=== PATIENT | male | born 1980 | race Caucasian/White ===

== ENCOUNTER 2017-02-03 06:31 | Inpatient (IN) | payer MEDICAID, OTHER ==
[~2017-02-03] VITALS: Ht 188 cm; Wt 86.1 kg
[2017-02-03 07:34] LABS: EOSINOPHILS % (AUTO) 0.02 % (1.0-6.0); HEMATOCRIT 47.1 % (41-53); HEMOGLOBIN 16.2 g/dL (13.5-17.5); LYMPHOCYTES # (AUTO) 0.8 K/uL (1.0-4.8); LYMPHOCYTES % (AUTO) 6.9 % (22.0-44.0); MEAN CORPUSCULAR HEMOGLOBIN 31.2 pg (26.0-34.0); MEAN CORPUSCULAR HGB CONC 34.3 G/dL (31.0-37.0); MEAN CORPUSCULAR VOLUME 91 fL (80-100); MONOCYTES # (AUTO) 0.7 K/uL (0.1-1.0); MONOCYTES % (AUTO) 5.8 % (2.0-9.0); NEUTROPHILS # (AUTO) 10.4 K/uL (1.8-7.7); PLATELET COUNT (AUTO) 264 K/uL (150-450); RED BLOOD CELL COUNT(AUTO) 5.19 MIL/uL (4.50-5.90); RED CELL DISTRIBUTION WIDTH 12.7 % (11.5-14.5)
[2017-02-03 07:35] LABS: NEUTROPHILS % (AUTO) 87.2 % (40.0-70.0)
[2017-02-03 07:40] LABS: ANION GAP 17 mmol/L (8-16); CALCIUM, TOTAL 9.3 mg/dL (8.8-10.5); CARBON DIOXIDE 21 mmol/L (22-29); CHLORIDE 100 mmol/L (98-107); CREATININE 0.88 mg/dL (0.60-1.30); GLOMERULAR FILTR. RATE CALC > 60 mL/min (>60); GLUCOSE,RANDOM 116 mg/dL (70-110); POTASSIUM 3.5 mmol/L (3.5-5.1); SODIUM SERUM 138 mmol/L (136-145); UREA NITROGEN, BLOOD 15 mg/dL (7-18)
[2017-02-03 07:43] LABS: ALANINE AMINOTRANSFERASE 51 U/L (12-78); ALBUMIN 4.8 g/dL (3.4-5.0); ALKALINE PHOSPHATASE 74 U/L (46-116); ASPARTATE AMINOTRANSFERASE 82 U/L (15-37); BILIRUBIN,TOTAL 0.7 mg/dL (0.1-1.0); TOTAL PROTEIN, SERUM 8.2 g/dL (6.4-8.2)
[2017-02-03] MEDS ORDERED: DiphenhydrAMINE HCL 50 MG/ML VIAL IM ONE ×2 (09:45→18:45)
[2017-02-03] MEDS ORDERED: HALOPERIDOL LACTATE 5 MG/ML VIAL IM ONE (09:45)
[2017-02-03] MEDS ORDERED: LORazepam 2 MG/ML VIAL IM ONE ×2 (09:45→18:45)
[2017-02-03] MEDS ORDERED: ZOLPIDEM TARTRATE 10 MG TABLET PO PRN (10:15)
[2017-02-03] MEDS ORDERED: HALOPERIDOL 5 MG TABLET PO PRN (10:15)
[2017-02-03 12:48] VITALS: BP 159/86
[2017-02-03] MEDS: LORazepam 2 MG TABLET PO PRN (18:17)
[2017-02-03 18:44] VITALS: BP 126/74
[2017-02-03] MEDS ORDERED: ACETAMINOPHEN 325 MG TABLET PO PRN (20:30)
[2017-02-03] MEDS ORDERED: SUMAtriptan SUCCINATE 25 MG TABLET PO PRN (20:30)
[2017-02-03] MEDS ORDERED: IBUPROFEN 400 MG TABLET PO PRN (20:30)
[2017-02-04 06:00] VITALS: BP 112/62
[2017-02-04 07:20] VITALS: BP 153/88
[2017-02-04 10:36] VITALS: BP 153/88
[2017-02-04] MEDS: LORazepam 2 MG TABLET PO PRN ×2 (15:08→20:42)
[2017-02-04 18:09] VITALS: BP 136/75
[2017-02-04] MEDS: OLANZapine 5 MG TABLET PO SCH (20:42)
[2017-02-05] MEDS: LORazepam 2 MG TABLET PO PRN ×2 (05:32→11:13)
[2017-02-05 05:35] VITALS: BP 151/102
[2017-02-05 08:57] VITALS: BP 122/82
[2017-02-05 16:00] VITALS: BP 122/71
[2017-02-05] MEDS: OLANZapine 5 MG TABLET PO SCH (20:33)
[2017-02-06] MEDS ORDERED: OLAN5TAB27 PO (07:54)
[2017-02-06 08:25] VITALS: BP 140/89
[2017-02-06 08:36] LABS: HEMOGLOBIN A1C 5.5 % (4.5-6.2)
[2017-02-06 08:50] LABS: CHOL/HDL RATIO 4.9 (4.2-7.3); THYROID STIMULATING HORMONE 1.16 uIU/mL (0.36-3.74)
== END 2017-02-06 10:50 | disposition home or self-care (01) | DRG 750 ==
LOC: EMS 06:33 → 3EI 12:10 → 3EC 20:13
PROVIDERS: ADMIT Psychiatry & Neurology Child & Adolescent Psychiatry; ATTEND Psychiatry & Neurology Child & Adolescent Psychiatry
DX: F20.0 Paranoid schizophrenia (principal); R74.0 Nonspecific elevation of levels of transaminase and lactic acid dehydrogenase [LDH]; F41.9 Anxiety disorder, unspecified; G89.29 Other chronic pain; G43.909 Migraine, unspecified, not intractable, without status migrainosus; M79.7 Fibromyalgia; Z91.5 Personal history of self-harm; Z91.041 Radiographic dye allergy status; Z81.8 Family history of other mental and behavioral disorders
CPT/HCPCS: 83036; 84443; 99285; G0480; J1200; J1630; J2060; J3230

== ENCOUNTER 2019-11-17 11:51 | Inpatient (IN) | payer MEDICAID, OTHER ==
[~2019-11-17] VITALS: Ht 185.4 cm; Wt 98.3 kg
[~2019-11-17 11:51] MED LIST: OLAN5TAB27 PO
[2019-11-17] MEDS ORDERED: ZOLPIDEM TARTRATE 10 MG TABLET PO PRN (13:00)
[2019-11-17] MEDS: LORazepam 2 MG TABLET PO PRN (15:29)
[2019-11-17] MEDS: HALOPERIDOL 5 MG TABLET PO PRN (15:29)
[2019-11-17 16:21] LABS: COVID AG,FIA SOURCE NASAL SWAB
[2019-11-17 17:36] VITALS: BP 152/97
[2019-11-18] MEDS: LORazepam 2 MG TABLET PO PRN ×3 (00:03→20:41)
[2019-11-18 00:14] VITALS: BP 144/85
[2019-11-18] MEDS: HALOPERIDOL 5 MG TABLET PO PRN ×2 (09:33→20:41)
[2019-11-18 10:10] VITALS: BP 149/81
[2019-11-18 16:06] VITALS: BP 126/81
[2019-11-18] MEDS: RisperiDONE 3 MG TABLET PO SCH (21:30)
[2019-11-19 08:00] VITALS: BP 136/85
[2019-11-19] MEDS ORDERED: PETROLATUM,WHITE 28 GM JELLY TP PRN (08:30)
[2019-11-19] MEDS ORDERED: BENZOCAINE/MENTHOL LOZENGE PO PRN (08:30)
[2019-11-19] MEDS ORDERED: ALBUTEROL SULFATE HFA 90 MCG/PUFF 8 GM INHALER IH PRN (08:30)
[2019-11-19] MEDS ORDERED: CloNIDine HCL 0.1 MG TABLET PO PRN (08:30)
[2019-11-19] MEDS ORDERED: ACETAMINOPHEN 325 MG TABLET PO PRN (08:30)
[2019-11-19] MEDS ORDERED: IBUPROFEN 600 MG TABLET PO PRN (08:30)
[2019-11-19] MEDS ORDERED: MAGNESIUM HYDROXIDE SUSPENSION 30 ML UDCUP PO PRN (08:30)
[2019-11-19] MEDS ORDERED: BACITRACIN 28 GM OINTMENT TP PRN (08:30)
[2019-11-19] MEDS ORDERED: OMEPRAZOLE 20 MG CAPSULE PO PRN (08:30)
[2019-11-19] MEDS ORDERED: ONDANSETRON HCL 4 MG TABLET PO PRN (08:30)
[2019-11-19] MEDS ORDERED: MAG HYDROX/AL HYDROX/SIMETH ES 30 ML SUSPENSION UDCUP PO PRN (08:30)
[2019-11-19] MEDS ORDERED: DOCUSATE SODIUM 100 MG CAPSULE PO PRN (08:30)
[2019-11-19] MEDS ORDERED: LOPERAMIDE HCL 2 MG CAPSULE PO PRN (08:30)
[2019-11-19] MEDS: RisperiDONE 3 MG TABLET PO SCH ×3 (09:00→16:51)
[2019-11-19] MEDS: LORazepam 2 MG TABLET PO PRN ×2 (09:44→19:23)
[2019-11-19] MEDS: HALOPERIDOL 5 MG TABLET PO PRN (09:44)
[2019-11-19 16:00] VITALS: BP 124/84
[2019-11-20 07:01] LABS: BASOPHILS % (AUTO) 0.4 % (0.0-2.0); EOSINOPHILS % (AUTO) 3.6 % (1.0-6.0); HEMATOCRIT 41.8 % (41-53); HEMOGLOBIN 14.6 g/dL (13.5-17.5); LYMPHOCYTES # (AUTO) 2.6 K/uL (1.0-4.8); LYMPHOCYTES % (AUTO) 38.9 % (22.0-44.0); MEAN CORPUSCULAR HGB CONC 34.8 G/dL (31.0-37.0); MEAN CORPUSCULAR VOLUME 89 fL (80-100); MONOCYTES # (AUTO) 0.5 K/uL (0.1-1.0); MONOCYTES % (AUTO) 7.6 % (2.0-9.0); NEUTROPHILS # (AUTO) 3.4 K/uL (1.8-7.7); NEUTROPHILS % (AUTO) 49.5 % (40.0-70.0); PLATELET COUNT (AUTO) 225 K/uL (150-450); RED CELL DISTRIBUTION WIDTH 12.9 % (11.5-14.5)
[2019-11-20 07:46] LABS: HEMOGLOBIN A1C 5.1 % (3.8-5.6)
[2019-11-20 07:50] LABS: ALANINE AMINOTRANSFERASE 38 U/L (12-78); ALBUMIN 4.1 g/dL (3.4-5.0); ALKALINE PHOSPHATASE 72 U/L (46-116); ANION GAP 8 mmol/L (8-16); ASPARTATE AMINOTRANSFERASE 20 U/L (15-37); BILIRUBIN,TOTAL 0.4 mg/dL (0.1-1.0); CALCIUM, TOTAL 9.5 mg/dL (8.8-10.5); CARBON DIOXIDE 27 mmol/L (22-29); CHLORIDE 103 mmol/L (98-107); CHOL/HDL RATIO 5.2 (4.2-7.3); CHOLESTEROL 177 mg/dL (131-200); CREATININE 0.92 mg/dL (0.60-1.30); GLOMERULAR FILTR. RATE CALC > 60 mL/min (>60); GLUCOSE,RANDOM 99 mg/dL (70-110); HDL CHOLESTEROL 34 mg/dL (40-60); LDL CHOL (CALC.) 120 mg/dL (0-130); PHOSPHORUS 4.1 mg/dL (2.5-4.9); POTASSIUM 4.2 mmol/L (3.5-5.1); SODIUM SERUM 138 mmol/L (136-145); THYROID STIMULATING HORMONE 0.99 uIU/mL (0.36-3.74); TOTAL PROTEIN, SERUM 6.8 g/dL (6.4-8.2); TRIGLYCERIDES 115 mg/dL (15-150); UREA NITROGEN, BLOOD 15 mg/dL (7-18)
[2019-11-20 09:02] VITALS: BP 150/99
[2019-11-20] MEDS: RisperiDONE 3 MG TABLET PO SCH ×2 (09:38→16:42)
[2019-11-20] MEDS: LORazepam 2 MG TABLET PO PRN ×3 (09:38→19:16)
[2019-11-20 16:00] VITALS: BP 142/94
[2019-11-21 09:38] VITALS: BP 123/77
[2019-11-21] MEDS: RisperiDONE 3 MG TABLET PO SCH (10:44)
[2019-11-21] MEDS: LORazepam 2 MG TABLET PO PRN (10:44)
[2019-11-21] MEDS ORDERED: RISP3TAB44 PO (10:50)
== END 2019-11-21 14:55 | disposition home or self-care (01) | DRG 750 ==
LOC: EMS 11:53 → 3EI 12:59 → UNDOADMIN 14:23 → 3EI 16:53
PROVIDERS: ADMIT Psychiatry & Neurology Psychiatry; ATTEND Psychiatry & Neurology Psychiatry
DX: F20.0 Paranoid schizophrenia (principal); M79.7 Fibromyalgia; G43.909 Migraine, unspecified, not intractable, without status migrainosus; G89.29 Other chronic pain; K59.00 Constipation, unspecified; F19.10 Other psychoactive substance abuse, uncomplicated; F41.9 Anxiety disorder, unspecified; G47.00 Insomnia, unspecified; Z03.818 Encounter for observation for suspected exposure to other biological agents ruled out
CPT/HCPCS: 83036; 83735; 84100; 84443; 87426

== ENCOUNTER 2021-07-16 12:50 | Inpatient (IN) | payer MEDICAID, OTHER ==
[~2021-07-16] VITALS: Ht 188 cm; Wt 98.9 kg
[~2021-07-16 12:50] MED LIST changes: -OLAN5TAB27 PO; +RISP3TAB44 PO
[2021-07-16 15:00] LABS: BASOPHILS % (AUTO) 0.8 % (0.0-2.0); EOSINOPHILS % (AUTO) 0.4 % (1.0-6.0); HEMATOCRIT 41.8 % (41-53); HEMOGLOBIN 14.4 g/dL (13.5-17.5); LYMPHOCYTES % (AUTO) 25.1 % (22.0-44.0); MEAN CORPUSCULAR HEMOGLOBIN 30.7 pg (26.0-34.0); MEAN CORPUSCULAR HGB CONC 34.5 G/dL (31.0-37.0); MEAN CORPUSCULAR VOLUME 89 fL (80-100); MONOCYTES # (AUTO) 0.6 K/uL (0.1-1.0); MONOCYTES % (AUTO) 4.8 % (2.0-9.0); NEUTROPHILS # (AUTO) 8.3 K/uL (1.8-7.7); NEUTROPHILS % (AUTO) 68.9 % (40.0-70.0); PLATELET COUNT (AUTO) 250 K/uL (150-450); RED BLOOD CELL COUNT(AUTO) 4.69 MIL/uL (4.50-5.90); RED CELL DISTRIBUTION WIDTH 12.7 % (11.5-14.5)
[2021-07-16 15:09] LABS: ANION GAP 14 mmol/L (8-16); CALCIUM, TOTAL 9.7 mg/dL (8.8-10.5); CARBON DIOXIDE 21 mmol/L (22-29); CHLORIDE 102 mmol/L (98-107); CREATININE 0.83 mg/dL (0.60-1.30); GLOMERULAR FILTR. RATE CALC > 60 mL/min (>60); GLUCOSE,RANDOM 100 mg/dL (70-110); SODIUM SERUM 137 mmol/L (136-145); UREA NITROGEN, BLOOD 17 mg/dL (7-18)
[2021-07-16 15:15] LABS: ALANINE AMINOTRANSFERASE 53 U/L (12-78); ALBUMIN 4.7 g/dL (3.4-5.0); ALKALINE PHOSPHATASE 104 U/L (46-116); ASPARTATE AMINOTRANSFERASE 34 U/L (15-37); BILIRUBIN,TOTAL 0.7 mg/dL (0.1-1.0); TOTAL PROTEIN, SERUM 8.5 g/dL (6.4-8.2)
[2021-07-16] MEDS ORDERED: TOPI25 PO (17:30)
[2021-07-16] MEDS ORDERED: DULO-113 PO (17:30)
[2021-07-16] MEDS ORDERED: BUSP5TAB20 PO (17:30)
[2021-07-16] MEDS ORDERED: CYCL-448 PO (17:30)
[2021-07-16] MEDS ORDERED: SUMA100T PO (17:30)
[2021-07-16 21:22] LABS: COVID AG,FIA SOURCE NASAL SWAB
[2021-07-16] MEDS ORDERED: ZOLPIDEM TARTRATE 10 MG TABLET PO PRN (23:15)
[2021-07-16] MEDS ORDERED: LORazepam 2 MG TABLET PO PRN (23:15)
[2021-07-16] MEDS ORDERED: HALOPERIDOL 5 MG TABLET PO PRN (23:15)
[2021-07-17 02:01] VITALS: BP 152/92
[2021-07-17 02:05] LABS: AMPHET/METH SCREEN,URINE NEGATIVE (NEGATIVE); BARBITURATE SCREEN, URINE NEGATIVE (NEGATIVE); BENZODIAZEPINES SCREEN,URINE NEGATIVE (NEGATIVE); CANNABINOID SCREEN,URINE NEGATIVE (NEGATIVE); COCAINE SCREEN,URINE NEGATIVE (NEGATIVE); METHADONE SCREEN, URINE NEGATIVE (NEGATIVE); OPIATE SCREEN,URINE NEGATIVE (NEGATIVE)
[2021-07-17 02:06] LABS: PHENCYCLIDINE SCREEN,URINE NEGATIVE (NEGATIVE)
[2021-07-17 02:28] VITALS: BP 152/92
[2021-07-17 02:35] VITALS: BP 152/92
[2021-07-17 05:12] LABS: APPEARANCE,URINE CLEAR (CLEAR); BILIRUBIN,URINE NEGATIVE (NEGATIVE); GLUCOSE, URINE (UA) NEGATIVE (NEGATIVE); LEUKOCYTE ESTERASE ,URINE NEGATIVE (NEGATIVE); NITRATE,URINE NEGATIVE (NEGATIVE); OCCULT BLOOD,URINE NEGATIVE (NEGATIVE); PROTEIN,URINE NEGATIVE (NEGATIVE); SPECIFIC GRAVITIY, URINE 1.017 (1.003-1.030); UROBILINOGEN,URINE <=1.0 mg/dL (<=1.0)
[2021-07-17 08:00] VITALS: BP 144/90
[2021-07-17] MEDS: DULoxetine HCL 60 MG CAPSULE PO SCH (10:45)
[2021-07-17] MEDS: RisperiDONE 3 MG TABLET PO SCH ×2 (10:45→21:00)
[2021-07-17] MEDS: BusPIRone HCL 5 MG TABLET PO SCH ×2 (10:45→21:00)
[2021-07-17] MEDS ORDERED: GuaiFENesin/D-METHORPHAN [SUGAR-FREE] 200-20MG/10 ML SYRUP UDCUP PO PRN (11:30)
[2021-07-17] MEDS ORDERED: MAGNESIUM HYDROXIDE SUSPENSION 30 ML UDCUP PO PRN (11:30)
[2021-07-17] MEDS ORDERED: IBUPROFEN 400 MG TABLET PO PRN (11:30)
[2021-07-17] MEDS ORDERED: SUMAtriptan SUCCINATE 100 MG TABLET PO PRN (11:30)
[2021-07-17] MEDS ORDERED: LOPERAMIDE HCL 2 MG CAPSULE PO PRN (11:30)
[2021-07-17] MEDS ORDERED: MAG HYDROX/AL HYDROX/SIMETH ES 30 ML SUSPENSION UDCUP PO PRN (11:30)
[2021-07-17] MEDS ORDERED: PETROLATUM,WHITE 28 GM JELLY TP PRN (11:30)
[2021-07-17] MEDS ORDERED: NICOTINE 14 MG/24 HOUR PATCH TD PRN (11:30)
[2021-07-17] MEDS ORDERED: CloNIDine HCL 0.1 MG TABLET PO PRN (11:30)
[2021-07-17] MEDS ORDERED: DOCUSATE SODIUM 100 MG CAPSULE PO PRN (11:30)
[2021-07-17] MEDS ORDERED: ONDANSETRON HCL 4 MG TABLET PO PRN (11:30)
[2021-07-17] MEDS ORDERED: ACETAMINOPHEN 325 MG TABLET PO PRN (11:30)
[2021-07-17] MEDS ORDERED: ALBUTEROL SULFATE HFA 90 MCG/PUFF 8 GM INHALER IH PRN (11:30)
[2021-07-17] MEDS: CYCLOBENZAPRINE HCL 10 MG TABLET PO SCH ×2 (13:00→17:00)
[2021-07-18 04:36] VITALS: BP 140/110
[2021-07-18 08:40] VITALS: BP 122/80
[2021-07-18] MEDS: RisperiDONE 3 MG TABLET PO SCH ×3 (09:00→20:24)
[2021-07-18] MEDS: DULoxetine HCL 60 MG CAPSULE PO SCH ×2 (09:00→09:21)
[2021-07-18] MEDS: BusPIRone HCL 5 MG TABLET PO SCH ×3 (09:00→20:24)
[2021-07-18] MEDS: CYCLOBENZAPRINE HCL 10 MG TABLET PO SCH ×3 (09:20→17:00)
[2021-07-18 16:30] VITALS: BP 130/93
[2021-07-19 08:44] VITALS: BP 137/84
[2021-07-19] MEDS: CYCLOBENZAPRINE HCL 10 MG TABLET PO SCH ×3 (13:00→16:07)
[2021-07-19] MEDS: RisperiDONE 3 MG TABLET PO SCH ×2 (13:54→20:24)
[2021-07-19] MEDS: BusPIRone HCL 5 MG TABLET PO SCH ×2 (13:55→20:24)
[2021-07-19] MEDS: DULoxetine HCL 60 MG CAPSULE PO SCH (13:55)
[2021-07-19 16:55] VITALS: BP 131/87
[2021-07-20 08:00] VITALS: BP 156/85
[2021-07-20] MEDS: DULoxetine HCL 60 MG CAPSULE PO SCH (09:30)
[2021-07-20] MEDS: RisperiDONE 3 MG TABLET PO SCH ×2 (09:30→20:52)
[2021-07-20] MEDS: CYCLOBENZAPRINE HCL 10 MG TABLET PO SCH ×3 (09:31→16:43)
[2021-07-20] MEDS: BusPIRone HCL 5 MG TABLET PO SCH ×2 (09:31→20:51)
[2021-07-20 16:00] VITALS: BP 128/79
[2021-07-21 08:00] VITALS: BP_SYST 17
[2021-07-21] MEDS: CYCLOBENZAPRINE HCL 10 MG TABLET PO SCH ×3 (08:59→17:43)
[2021-07-21] MEDS: RisperiDONE 3 MG TABLET PO SCH (08:59)
[2021-07-21] MEDS: DULoxetine HCL 60 MG CAPSULE PO SCH (08:59)
[2021-07-21] MEDS: BusPIRone HCL 5 MG TABLET PO SCH (09:00)
[2021-07-21] MEDS ORDERED: RISP1TAB48 PO (17:01)
[2021-07-21] MEDS ORDERED: BUSP5TAB20 PO ×2 (17:01→17:15)
[2021-07-21] MEDS ORDERED: RISP3TAB63 PO (17:15)
== END 2021-07-21 18:05 | disposition left against medical advice (07) | DRG 750 ==
LOC: EMS 12:54 → 3EI 07-17
PROVIDERS: ADMIT Psychiatry & Neurology Psychiatry; ATTEND Psychiatry & Neurology Psychiatry
DX: F20.0 Paranoid schizophrenia (principal); R45.851 Suicidal ideations; D72.829 Elevated white blood cell count, unspecified; G43.909 Migraine, unspecified, not intractable, without status migrainosus; G89.4 Chronic pain syndrome; M79.7 Fibromyalgia; F32.A Depression, unspecified; F41.9 Anxiety disorder, unspecified; Z53.29 Procedure and treatment not carried out because of patient's decision for other reasons; F19.10 Other psychoactive substance abuse, uncomplicated; Z20.822 Contact with and (suspected) exposure to COVID-19; Z91.041 Radiographic dye allergy status; Z71.51 Drug abuse counseling and surveillance of drug abuser
CPT/HCPCS: 80053; 81003; 85025; 99285; G0480